=== PATIENT | female | born 2000 | race Caucasian/White ===

== ENCOUNTER → 2021-11-28 | Outpatient (CLI) | payer BC, OTHER ==
[~2021-11-28] MED LIST: ACET80
[2021-11-28 11:06] LABS: Source, Urine Voided
[2021-11-28 12:05] LABS: Appearance, Urine Clear (Clear); Bilirubin, Urine Neg (Neg); Blood, Urine Neg (Neg); Color, Urine Yellow (P-Yellow); Glucose Qualitative, Urine Neg (Neg); Ketones, Urine Neg (Neg); Leukocyte Esterase, Urine 1+ (Neg); Nitrite, Urine Neg (Neg); Protein, Urine Neg (Neg); Urobilinogen, Urine NORM (Normal); pH, Urine 6.5 (5.0-8.0)
[2021-11-28 12:16] LABS: Red Blood Cells, Urine 0-2 /hpf (0-2); Squamous Epithelial Cells Few /hpf (Few); Yeast/Fungi Urine Few /hpf
[2021-11-28 12:17] LABS: Bacteria Many /hpf; Mucus Mod (0-Heavy)
[2021-11-28 12:19] LABS: Hyaline Casts 0-2 /lpf (0-2)
== END ==
LOC: LAB 11:05 → LAB SHORT 11:05 → LAB FUT 10-14 16:45
PROVIDERS: Family Medicine
DX: D50.8 Other iron deficiency anemias (principal); M06.09 Rheumatoid arthritis without rheumatoid factor, multiple sites; N39.0 Urinary tract infection, site not specified
CPT/HCPCS: 81001; 87086

== ENCOUNTER 2022-01-29 19:32 | Inpatient (IN) | payer BC, OTHER ==
[~2022-01-29] VITALS: Ht 152.4 cm; Wt 37.9 kg
--- NOTE | 2022-01-30 00:39 | NUR ---
ADMISSION PATIENT ADMITTED FROM ER AT 0000. PATIENT SETTLED INTO R0OM. PATIENT ORIENTED TO CALL LIGHT. PATIENT ALLOWED US TO CHANGE HER CLOTHES AND CLEAN HER UP. ADMISSION COMPLETE. PATIENT ON 2 MD HOLD. PATIENT ON LOW SI. PATIENT REFUSED IV OR LAB DRAW, WILL CONTINUE TO ATTEMPT. PATIENT A&O X1-2. PATIENT HAS VERY SCATTERED THOUGHTS, DOES NOT ANSWER MOST QUESTIONS APPROPRIATELY. WILL OCCASSIONALLY LAUGH, PATIENT ADMITS TO HEARING VOICES AND HAVING VISUAL HALLUCINATIONS. PATIENT ADMITS THAT SOMETIMES THE VOICES MAKE SUGGESTIONS ABOUT HARMING HERSELF. PATIENT DID SIP ON SOME SPRITE, PER REPORT, PATIENT HAS SIGNIFICANT WEIGHT LOSS.
--- NOTE | 2022-01-30 05:49 | NUR ---
SHIFT SUMMARY PATIENT DENIES PAIN, NAUSEA, AND SHORTNESS OF BREATH. PATIENT ON BEDREST. PATIENT HAS ALLOWED STAFF TO CHECK AND CHANGE HER SINCE BEING ADMITTED. PATIENT VERY FIRM ON NOT HAVING LAB DRAWS OR IV PLACED. PATIENT STATES IT WILL NOT HELP HER AND SHE DOES NOT THINK FLUIDS IS NEEDED. PATIENT ALLOWED VITALS, SBP LOW. EDUCATED PATIENT ABOUT NEED FOR IV TO GIVE FLUIDS FOR LOW SBP. PATIENT INSISITENT THAT FLUIDS WILL NOT HELP AND THAT IT NOT HOW YOU FIX IT. PATIENT ALSO STATED SHE JUST WANTS TO , BUT DID NOT STATE A PLAN. PATIENT READ CIVIL RIGHTS. DR. CHU NOTIFIED OF PATIENT REFUSAL, NO NEW ORDERS. DURING 0400 VITALS, PATIENT DENIES HALLUCINATIONS, VISUAL AND AUDITORY. PATIENT ALSO COULD ANSWER ORIENTED QUESTIONS APPROPRIATELY. HOWEVER, THOUGHT PATTERN STILL SEEMS SCATTERED DURING CONVERSATION. PATIENT DID AGREE TO DRINK WATER. PATIENT DID EAT SOME ICE CREAM. PATIENT IS PLEASANT.
--- NOTE | 2022-01-30 08:03 | NUR ---
Patient refused vital signs this morning.
--- NOTE | 2022-01-30 10:57 | NUR ---
PT OPENS HER EYES TO STIMULI, REFUSES TO SPEAK FOR SI MACIE. GAVE PT APPROX 5 MINS, ASSESSED PT ORIENTATION-PT ABLE TO TELL ME [facility] STATES SHE HAS BEEN HERE SEVERAL TIMES FOR BIRTHS AND TO SEE FAMILY MEMBERS WHO WERE PT'S. STATES SI- PT STATES SHE HAS THOUGHTS OF HER LIFE ENDING. WHEN ASKED ABOUT PLAN, PT STATES SHE PLANS TO IN HER SLEEP. PT STATES SHE GETS NAUSEA WHEN SHE EATS, DRINKS, OR TAKES MEDS.
--- NOTE | 2022-01-30 17:17 | NUR ---
SHIFT SUMMARY PT A&OX4 AND IN PLEASENT MOOD T/O SHIFT. PT APPEARS TO BE WITHDRAWN ESPECIALLY IN AM HOURS-PT WOULD OPEN EYES TO QUESTIONS, WITH NO RESPONSE. PT UP TO RECLINER IN AFTERNOON, ACCEPTED SNACKS AND ROOT BEER. VERBALLY RESPONDING TO STAFF. CONT. VOID IN TOILET, BRUSHED TEETH. AMBULATED IN DALAL TO WINDOW. WATCHING TV NOW. CALL LIGHT W/IN REACH.
--- NOTE | 2022-01-31 05:56 | NUR ---
NIGHTSHIFT SUMMARY Patient AOx3, awake watching TV all evening. Patient declined Risperadone @ HS. Provided education, unreceptive. Remote monitoring called, patient got up out of chair w/o assistance. Staff assisted pateint to bed, patient quiet, appears withdrawn. Patient slowly got into bed, call-light in reach, bed alarm activated & audible for safety. Patient continent of bowel/bladder. Declined morning labs. Allowed AM vital signs. Will continue to monitor.
--- NOTE | 2022-01-31 14:10 | NUR ---
PT STATES SHE DOES NOT WANT TO TALK ABOUT , SHE DOES NOT WANT TO HARM HERSELF
--- NOTE | 2022-01-31 18:17 | NUR ---
SHIFT SUMMARY PT A&OX4 AND IN A PLEASENT MOOD T/O SHIFT, THOUGH WITHDRAWN. TOLERATING AND REQUESTING FOOD. PARENTS IN TO SEE PT BRIEFLY DURING VISITING HOURS. UP TO BATHROOM FOR VOID, WEAK GAIT 1X. CALL LIGHT W/IN REACH. REFUSING MEDS, STATES "I DONT WANT TO TAKE IT, MEDS MAKE ME SICK". PENDING INPATIENT PSYCH.
--- NOTE | 2022-01-31 20:00 | NUR ---
PT DENIES SUICICAL IDEATION. PT RESTING QUIETING IN BED. REQUESTED VANILLA ICE CREAM. PT REPORTS PAIN WITH MOVEMENT, OTHERWISE SHE DENIES PAIN.
--- NOTE | 2022-02-01 04:20 | NUR ---
PT AWAKE, SITTING UP IN BED - REQUESTING ICE CREAM AND YOGURT - BOTH PROVIDED PER REQUEST. PT HAS BEEN COOPERATIVE WITH [facility].
--- NOTE | 2022-02-01 05:33 | NUR ---
SHIFT SUMMARY - NO ACUTE CHANGES THROUGHOUT THIS SHIFT. PT HAS HAD A GOOD APPETITE TONIGHT, WITH SEVERAL REQUESTS FOR FOOD/SNACKS. PT REFUSED LAB DRAWS AND MEDICATIONS TONIGHT. PT WAS INCONTINENT OF URINE/BM - ATTENDS IN PLACE. PT HAD ONE EPISODE OF LAUGHING, APPARENTLY NOT TO ANYTHING GOING ON IN THE ROOM. PT HAS OTHERWISE BEEN APPROPRIATE IN HER BEHAVIOR, EXCEPT SHE IS WITHDRAWN. PT SLEPT FOR APPX 4-5 HOURS TONIGHT. FLUIDS AT BEDSIDE. CALL LIGHT WITHIN REACH. BED IN LOW POSITION. WILL CONTINUE TO MONITOR UNTIL AM SHIFT CHANGE. PT DID REPORT HAVING AUDITORY HALLUCINATIONS AT THE BEGINNING OF THE SHIFT.
--- NOTE | 2022-02-01 14:21 | NUR ---
PT STATES SHE HAS THOUGHTS OF , SHE STATES, "I CAN HEAR THE BEEPING FROM THE DALAL AND IT REMINDS ME OF A HEART MONITOR, THEN SOUNDS LIKE A FLAT LINE, BUT I DONT WANT TO HURT MYSELF."
--- NOTE | 2022-02-01 14:22 | NUR ---
PT WILLING TO SHOWER, ICE CREAM AND ROOTBEER UTILIZED MOTIVATION.
--- NOTE | 2022-02-01 17:00 | NUR ---
SHIFT SUMMARY A&O X4 AND IN PLEASENT MOOD, THOUGH WITHDRAWN @ TIMES. SHOWERED THIS SHIFT. TOLERATING PO INTAKE @ THIS TIME, REQUESTS SNACKS T/O SHIFT. DENIES SI. SBA. INCONT. URINATION THIS SHIFT PER SCREW MACHINE REPAIRER PT URINATED ON FLOOR. CALL LIGHT W/IN REACH. PT REFUSES MEDS, STATES "MEDS MAKE ME SICK". VSS. PLAN FOR IN-PT PSYCH PLACEMENT.
--- NOTE | 2022-02-01 22:11 | NUR ---
SUICIDE RISK ASSESSMENT: PATIENT DENIES SUICIDE IDEATIONS AT THIS TIME.
--- NOTE | 2022-02-02 06:44 | NUR ---
SHIFT SUMMARY: PATIENT IS A&OX3, DENIES SUICIDE IDEATIONS, VSS. PATIENT REFUSED 0400 VS, COVID SWAB AND MEDICATIONS. SNACK WAS GIVEN AND PATIENT ATE 100%
--- NOTE | 2022-02-02 17:37 | NUR ---
SHIFT SUMMARY NO ACUTE CHANGES DURING SHIFT. PT ALERT TO SELF. PERIODICAL HALLUCINATIONS. PT STILL REFUSING MEDICATIONS AND TREATMENT. PT PENDING IN PATIENT PSYCH PLACEMENT. PT WITH CONTINUED BOUTS OF INCONTINENCE. WILL CONTINUE TO MONITOR. CALL LIGHT WITHIN REACH.
--- NOTE | 2022-02-02 23:45 | NUR ---
ATTEMPTED TO HELP CHANGE PT'S WET ATTENDS AND GOWN, PT REFUSED. OFFERED TO HELP PT CHANGE WET ATTENDS, PT REFUSED WELL. OFFEREED TO GATHER NEEDED SUPPLIES FOR PT TO CHANGE ATTENDS AND GOWN BY HERSLF, PT REFUSES STATING SHE DOES NOT NEED TO GET OUT OF HER WET ATTENDS. EDUCATED PT ON NEED TO CHANGE WET ATTENDS LEAVING THEM IN PLACE AGAINST HER SKIN COULD CAUSE BREAKDOWN OR RASH, AND POSSIBLE EVEN A UTI. PT RESPONDED BY SAYING BABIES ARE LEFT IN THEIR WET DIAPERS FOR A LONG TIME AND THEY DON'T GET RASHES. PT ALSO STATES THAT SHE DOESNT CHANGE HER ATTENDS FOR DAYS AT HOME AND SHE RARELY GETS RASHES. PT ALSO EXPRESSED THAT SHE IS ANNOYED BY HOW OFTEN WE TRY TO GET HER TO CHANGE HER ATTENDS. REINFORCED EDUCTAION THAT WE REALLY WOULD LIKE HER TO CHANGE OUT OF HER WET ATTENDS SO THAT SHE DOESNT GET ANY OF THE NEGATIVE CONSEQUENCES OF SITTING IN HER URINE. PT STILL CONTINUES TO REFUSES ATTEND CHANGES. WILL CONTINUE TO ENCOURAGE ATTEND CHANGES/PERSONAL HYGIENE.
--- NOTE | 2022-02-03 05:44 | NUR ---
SHIFT SUMMARY; PT IS AXO X3, WITH AUDITORY HALLUCINATIONS. PT REFUSED MEDS THIS EVENING WELL ALL PERSONAL CARE. PT IS SLOW TO RESPOND AND IS WITHDRAWN FROM THE SITUATION. PT WET ATTENDS AND HER GOWN BUT REFUSED TO BE CHANGED. ATTEMPTED TO CHANGE PT AND OFFERED ASSISTANCE BUT PT REFUSED. PT WAS ALSO OFFERED SUPPLIES TO CHANGE HERSELF BUT REFUSED TO DO SO. PT WAS EDUCATED ON POTENTIAL COMPLICATION OF SITTING IN HER URINE. PT DID ASK FOR HOT TEA, ASYA CRACKERS AND ICE CREAM AND ATE/DRANK IT ALL. TRIED TO COVID TEST, PT REFUSED.PT PLACED ATTEND BY HER HEAD IN THE BED IN CASE SHE DECIDES SHE WANTS TO CHANGE HER ATTEND. PT IS CURRENTLY SLEEPING IN BED WITH THE BED IN THE LOWEST POSITION AND THE CALL LIGHT WITHIN REACH.
--- NOTE | 2022-02-03 17:13 | NUR ---
SHIFT SUMMARY NO ACUTE CHANGES DURING SHIFT. PT ALERT AND ORIENTED, PT HAS HAD PERIODICAL HALLUCINATIONS. PT IS SBA IN ROOM, INCREASED APPETITE, TOLERATING DIET. PT STILL REFUSING MEDICATIONS AND MOST TREATMENT, BUT ALLOWING VITALS AT TIMES. PT DENIED FOR INPATIENT PSYCH UNIT, PARENTS AT BEDSIDE TODAY AND INFORMED. CM DISCUSSED THOROUGHLY WITH FAMILY NEXT STEPS. CALL LIGHT WITHIN REACH
--- NOTE | 2022-02-04 04:04 | NUR ---
SHIFT SUMMARY PATIENT HAD NO ACUTE CHANGES. AXO X 4 AND SBA TO BR. INCONTINENT AT TIMES. ON CAMERA. CAMERA TECH REPORTED PATIENT VOIDED ON FLOOR. REFUSING ATTEND CHANGES AT TIMES. REFUSING MEDICATION AND ASSESSMENT. DID ALLOW VITALS THIS SHIFT. DENIES PAIN, SOB, AND N/V. VSS/AFEBRILE. CALL LIGHT IN REACH. BED IN LOWEST POSITION. WILL CONTINUE TO MONITOR UNTIL DAY SHIFT NURSE ASSUMES CARE.
--- NOTE | 2022-02-04 15:50 | NUR ---
Spiritual care consult received and processed. Pt is lying in bed and alert. Pt engages well in conversation but is slow to answer and is confused at times. She articulates her pain that she believes is a result of being forced to continue to exist when her main objective is to . Life has not been what she "wants it to be" and so she "does not want to participate in it any longer." She is admittedly frustrated that she is still on this planet. The rest of the conversation after these clear statements becomes a bit more scattered. She does not answer anything with any clarity and dances around the point. She also begins saying things like "You remind her of three people and they are all different." She cuts off communication once I ask about anything of hope, goodness or meaning." I ask about jewish which she is very allusive about answering as well but admits to believing in God and to have read the Bible. She will not allow any more probing on this topic either. I encourage self-care, normalize her feelings and provide therapeutic listening, and a calming presence. Pt states that she would prefer to not have a follow-up visit but thought that the current visit was "ok and she felt safe."
--- NOTE | 2022-02-04 17:43 | NUR ---
SHIFT SUMMARY PT IS ALERT AND ORIENTED X 3-4. PT WAS COOPERATIVE WITH MORNING ASSESSMENT. PT INITIALLY REFUSED MORNING MEDICATIONS BUT AGREED TO TAKE RISPERIDONE WITH ICE CREAM. PT HAD AN EPISODE OF INCONTIENCE IN THE AM BUT WHEN PROMPTED TO USE THE BATHROOM, SHE WILL GO. PT HAS BEEN SITTING IN RECLINER FOR AFTERNOON COLORING. PT ENJOYS LIFETIME AND [employer] NETWORK ON THE TV. PT IS QUITE AND ANSWERS QUESTIONS WITH MINIMAL RESPONSES. BED IN LOWEST POSITION AND CALL LIGHT IN REACH.
--- NOTE | 2022-02-05 04:26 | NUR ---
SHIFT SUMMARY PT SLEPT OFF AND ON THIS EVENING. PT WITH FLAT AFFECT. SOFT SPOKEN. RESPONSES TO QUESTIONS ARE SHORT. PT DOES DENY ANY HALLUCINATIONS OR SI THIS EVENING. LACKS MOTIVATION. INCONTINENT AT TIMES. DID ATTEMPT TO GET UP TO C THIS SHIFT AND ENDED UP VOIDING ALL OVER THE FLOOR. MOVEMENTS ARE STIFF AND SLOW. REFUSED 2100 MEDICATION. PT DID EAT A HALF A SANDWICH AND AN ICE CREAM CUP AND DRANK FLUIDS WELL. VITAL SIGNS REMAINED STABLE.
--- NOTE | 2022-02-05 18:01 | NUR ---
SHIFT SUMMARY NO ACUTE CHANGES TODAY. PT WAS UP TO BEDSIDE CHAIR FOR MOST OF THE DAY. PT REMAINS QUIET AND WITHDRAWN BUT ENJOYS COLORING. NO C/O OF PAIN. PT DID WALK TO BATHROOM INDEPENDENTLY AND GOT IN SHOWER WITH GOWN STILL ON, PER MEDICAL TRANSCRIPTION. VSS. BED IN LOWEST POSITION AND CALL LIGHT IN REACH.
--- NOTE | 2022-02-06 06:05 | NUR ---
NO CHANGES OVERNIGHT WITH GIDEON. SHE IS EXTREMELY WITHDRAWN, FLAT AND VERY SLOW TO RESPOND IN VERY SOFT ONE WORD ANSWERS. SHE DID TAKE HER HS RISPERDAL ORALLY CRUSHED IN ORANGE SHERBET. WITHIN 30 MINUTES, SHE WAS FAST ASLEEP AND DID NOT WAKE UNTIL AROUND 0600. AT 2400, PATIENT STIRRED ENOUGH ONLY TO TELL THIS RN NO WITH REGARD TO HER Q8 HOUR [place].
--- NOTE | 2022-02-06 17:28 | NUR ---
SHIFT SUMMARY PATIENT IS ALERT AND ORIENTED 2-3X. PATIENT HAS HAD NO ACUTE EVENTS THIS SHIFT. VITAL SIGNS REVIEWED. PATIENT HAS HAD SOFT B/P, AWARE. PATIENT REFUSED HER MEDICATIONS OF JORDAN [place] THIS SHIFT. PATIENT HAS TOOK A SHOWER WITH CLOTHES ON AND REFUSED TO GET OUT. PATIENT HAS NOT EATTEN MUCH ALL DAY. PATIENT HAS NOT COMPLAINED OF PAIN, NAUSEA, VOMITTING OR SOB THIS SHIFT. WILL MONITOR UNTIL SHIFT CHANGE.
--- NOTE | 2022-02-07 03:41 | NUR ---
PATIENT COMPLETELY REFUSING HS CARES ASSISTANCE, HS MEDS AND 2400 BENGAY. NEW CLOTHES WERE BROUGHT TO HER TO CHANGE INTO SHE WAS STILL WET FROM SHOWER, AND SHE REFUSED THAT TOO UNTIL SHE HAD AN EPISODE OF URINE INCONTINENCE AND THEN ONLY CHANGED INTO THE PANTS. UNWILLING TO COMMUNICATE USING FULL SENTENCES. STILL JUST SLOW TO RESPOND USING ONE TO TWO WORD RESPONSES.
--- NOTE | 2022-02-07 15:54 | NUR ---
SHIFT SUMMARY PT RESTING QUIETLY AT START OF SHIFT. SOFT SPOKEN, REFUSING ALL CARE. DR LOPEZ HERE TO SEE PT WHEN PRACTICE MANAGER RETURNED AGAIN TO ATTEMPT TO DRAW AM LABS. PT CONTINUED TO REFUSED ANY MEDS OR TREATMENTS. UP INDEPENDENTLY IN RM AND TO CHAIR, WELL BTHRM. NO C/O PAIN, DENIES NEEDS. CALL LT IN REACH.
--- NOTE | 2022-02-08 04:17 | NUR ---
GIDEON CONTINUES TO BE VERY QUIET AND SLOW TO RESPOND. OVERNIGHT, SHE WOULD PEER SLOWLY OVER THE TOP OF HER COVERS AND WHISPER OCCASIONAL ONE OR TWO WORD RESPONSES TO REQUESTS. SHE DID ALLOW THIS RN TO APPLY SOME BENGAY TO HER LEFT ELBOW AROUND 2200. VASILIYDAL WAS TAKEN CRUSHED AND PUT IN SEMI- MELTED ORANGE SHERBET AND MADE INTO A "SHAKE" AT . NO ATTEMPTS TO WALK OFF UNIT, OR EVEN WALK IN THE DALAL OVERNIGHT NO COMPLAINTS OF PAIN OR DISCOMFORT OTHER THAN LEFT ELBOW AREA. [place] RIED TO ENCOURAGE PATIENT TO TALK, BUT NO SUCCESS SABINA
--- NOTE | 2022-02-08 15:05 | NUR ---
SHIFT SUMMARY PT REMAINS UNCHANGED. REFUSES CARE AND LABS. UP INDEPENDENTLY IN RM AND OOB TO CHAIR, SITTING IN THE SUN DURING THE DAY. EATING AND DRINKING WHAT SHE WILL. ALLOWED JORDAN [place]IS TO L ELBOW AREA, BUT THAT IS ALL. PT ENCOURAGED TO GO FOR A WALK IN HALLS AGAIN TODAY. PT WAS ACTUALLY EAGER TO DO THAT AND SET IN RECLINER AT END OF DALAL. VERY SOFT SPOKEN AND WILL NOT TALK MUCH AT ALL. NO C/O. DENIES NEEDS. USED BSC TO VOID A COUPLE OF TIMES. WILL CONTINUE TO MONTITOR. CALL LT IN REACH.
--- NOTE | 2022-02-09 04:01 | NUR ---
NO CHANGES NOTED WITH GIDEON OVERNIGHT. PATIENT DENIED PAIN, BUT DOES ALLOW APPLICATION OF BENGAY TO LEFT ELBOW. RISPERDAL WAS CRUSHED IN MIXED INTO HER CHOCOLATE PUDDING AROUND HS. STILL RESPONDS SPARINGLY WITH QUIET VOICE, AND ONE OR TWO WORD ANSWERS. VERY WITHDRAWN
--- NOTE | 2022-02-09 18:04 | NUR ---
SHIFT SUMMARY- PT IS ALERT, PLEANT AND COOPERATIVE. SHE HAS A POOR APPETITE. SHE IS SLOW TO RESPOND, AND HAS A FLAT AFFECT. DISCHARGE ORDERS WERE PLACED THIS EVENING. CALLED PT PARENTS AND THEY REPORTED THAT IS WAS NOT POSSIBLE FOR THEM TO TAKE HER HOME AT THIS TIME. NOTIFIED DR. PICKENSITING TO HEAR BACK FROM HIM. HER BED IS IN THE LOW POSITION AND CALL LIGHT IS WITIN REACH.
--- NOTE | 2022-02-10 04:40 | NUR ---
SHIFT SUMMARY 21 YR F ADMITTED ON 13/10/21 FOR FAILURE TO THRIVE. FULL CODE. NO ACUTE CHANGES THIS SHIFT. PT IS VERY WITHDRAWN AND SHY BUT DID ANSWER QUESTIONS FOR THIS NURSE. SHE TOOK HER EVENING MEDS CRUSHED IN ICE CREAM. SHE PENT MOST OF THIS SHIFT IN HER ROOM WITH THE LIGHTS OFF BUT NOT SURE IF SHE WAS ACTUALLY SLEEPING OR NOT.
--- NOTE | 2022-02-10 12:34 | NUR ---
EXPLAINED D/C TO PT. PT LABILE AND WITHDRAWN, TO RESPONSE NOTED DURING CONVERSATION. WILL CONTINUE TO MONTIOR AND OFFER EDUCATION IF PT IS RESPONSIVE.
--- NOTE | 2022-02-10 13:02 | NUR ---
EDUCATED PT ON PAPERWORK, PT LISTENED BUT WITH NO RESPONSE. PT DOES NOT WANT TO RETURN HOME. PT RELUCTANT TO GET IN WHEEL CHAIR FOR TRANSPORT. WITH ASSISTANCE OF 2 RN'S TO GET PT IN CHAIR FOR TRANSPORT. PT CLOSED EYES AND QUIETLY WENT WITH TRANSPORT. ALL BELONGINGS IN HAND, PAPERWORK WITH VOIP NETWORK ENGINEER. PT REFUSED TO TALK OTHER THAN WHEN SHE DID NOT WANT TO GO HOME, STATING "NO ONE CARES ABOUT ME." AFTER SITTING BEDSIDE WITH PT i DID NOT GET INFORMATION WHY PT DID NOT WANT TO RETURN HOME. PT IN BED THROUGHOUT SHIFT. VSS. APPETITE OK. INDEPENDANT IN ROOM. CALL LIGHT IN REACH DURING SHIFT. PT D/C'D TO HOME VIA TRANSPORT @1300.
== END 2022-02-10 12:58 | disposition home or self-care (01) | DRG 885 ==
LOC: ER 19:32 → MEDS 23:45
PROVIDERS: ADMIT Hospitalist
DX: F23 Brief psychotic disorder (principal); R64 Cachexia; R44.0 Auditory hallucinations; E44.1 Mild protein-calorie malnutrition; Z68.1 Body mass index [BMI] 19.9 or less, adult; G31.84 Mild cognitive impairment of uncertain or unknown etiology; R62.7 Adult failure to thrive; M08.00 Unspecified juvenile rheumatoid arthritis of unspecified site; M08.8 Other juvenile arthritis; R32 Unspecified urinary incontinence; I95.9 Hypotension, unspecified
CPT/HCPCS: 97162; 99285; A9270; Q3014

== ENCOUNTER 2022-02-14 13:25 | Observation (INO) | payer BC, OTHER ==
[~2022-02-14] VITALS: Ht 149.9 cm; Wt 34.0 kg
[2022-02-14 14:57] LABS: Influenza A, PCR NEGATIVE (NEGATIVE); Influenza B, PCR NEGATIVE (NEGATIVE); Resp Syncytial Virus, PCR NEGATIVE (NEGATIVE)
[2022-02-14 15:03] LABS: SARS-Cov-2 (COVID-19) PCR, MMC POSITIVE (NEGATIVE)
[2022-02-14 22:43] LABS: Source, Urine Clean Catch
[2022-02-14 22:47] LABS: Bilirubin, Urine Neg (Neg); Blood, Urine 2+ (Neg); Glucose Qualitative, Urine Neg (Neg); Ketones, Urine 1+ (Neg); Leukocyte Esterase, Urine 1+ (Neg); Nitrite, Urine Neg (Neg); Protein, Urine 1+ (Neg); Specific Gravity, Urine 1.015 (1.003-1.022); Urobilinogen, Urine 1+ (Normal)
[2022-02-14 22:53] LABS: Appearance, Urine Cloudy (Clear); Color, Urine Yellow (P-Yellow)
[2022-02-14 22:54] LABS: Amorphous Heavy (0-Heavy); Bacteria Mod /hpf; Red Blood Cells, Urine 0-2 /hpf (0-2); Squamous Epithelial Cells Mod /hpf (Few); White Blood Cells, Urine 0-2 /hpf (0-5)
[2022-02-14 22:57] LABS: U Amphetamine Screen Not Detected; U Barbituate Screen Not Detected; U Benzodiazapine Screen Not Detected; U Buprenorphine Screen Not Detected; U Cannabinoids Screen Not Detected; U Cocaine Screen Not Detected; U Methadone Screen Not Detected; U Methamphetamine Screen Not Detected; U Opiates Screen Not Detected; U Oxycodone Screen Not Detected; U Phencyclidine Screen Not Detected; U Propoxyphene Screen Not Detected
[2022-02-15 09:37] LABS: BASOPHILS ABSOLUTE AUTO 0.03 K/mm3 (0.00-0.23); BASOPHILS PERCENT AUTO 0 % (0-2); EOSINOPHILS ABSOLUTE AUTO 0.07 K/mm3 (0.00-0.68); EOSINOPHILS PERCENT AUTO 1 % (0-6); Hematocrit 33.2 % (33.0-51.0); Hemoglobin 9.1 g/dL (11.5-16.0); IMMATURE GRAN ABSOLUTE AUTO 0.02 K/mm3 (0.00-0.10); IMMATURE GRAN PERCENT AUTO 0 % (0-1); LYMPHOCYTES ABSOLUTE AUTO 1.58 K/mm3 (0.84-5.20); LYMPHOCYTES PERCENT AUTO 23 % (21-46); MONOCYTES ABSOLUTE AUTO 0.55 K/mm3 (0.16-1.47); MONOCYTES PERCENT AUTO 8 % (4-13); Mean Corpuscular HGB 18.7 pg (26.0-34.0); Mean Corpuscular HGB Conc 27.4 g/dL (31.5-36.5); Mean Corpuscular Volume 68 fL (80-100); NEUTROPHILS ABSOLUTE AUTO 4.63 K/mm3 (1.96-9.15); NEUTROPHILS PERCENT AUTO 67 % (41-73); Platelet Count 387 K/mm3 (150-400); RDW Coefficient Variation 20.1 % (11.7-14.2); RDW Standard Deviation 48.7 fL (35.1-46.3); Red Blood Cell Count 4.86 M/mm3 (3.80-5.20); White Blood Cell Count 6.88 K/mm3 (4.00-11.30)
[2022-02-15 10:02] LABS: Ethanol (Alcohol), Blood, Med <3 mg/dL; Salicylate <1.7 mg/dL (2.8-20.0)
[2022-02-15 10:21] LABS: Acetaminophen, Random <2.0 ug/mL (10.0-30.0); Alanine Aminotransfer (ALT/SGP 14 U/L (12-78); Albumin, Blood 3.5 g/dL (3.4-5.0); Albumin/Globulin Ratio 0.8 (0.8-1.8); Alk Phos 102 U/L (50-136); Anion Gap 6 mmol/L (6-16); Aspartate Aminotrans (AST/SGOT 13 U/L (12-37); Bilirubin, Total 0.4 mg/dL (0.1-1.0); Blood Urea Nitrogen 9 mg/dL (8-24); Bun/Creatinine Ratio 26.9 (12.0-20.0); CO2, Blood 26 mmol/L (21-32); Calcium, Blood 8.5 mg/dL (8.5-10.1); Chloride, Blood 107 mmol/L (98-108); Creatinine, Blood 0.33 mg/dL (0.40-1.00); Globulin, Blood 4.3 g/dL (2.2-4.0); Glomerular Filtration Rate 151 (60-); Glucose, Blood 144 mg/dL (70-99); Potassium, Blood 4.7 mmol/L (3.5-5.5); Sodium, Blood 139 mmol/L (136-145); Total Protein, Blood 7.8 g/dL (6.4-8.2)
[2022-02-21 20:01] LABS: Source, Urine Clean Catch
[2022-02-21 20:07] LABS: Appearance, Urine Hazy (Clear); Bilirubin, Urine Neg (Neg); Blood, Urine 3+ (Neg); Color, Urine Yellow (P-Yellow); Glucose Qualitative, Urine Neg (Neg); Ketones, Urine Neg (Neg); Leukocyte Esterase, Urine 1+ (Neg); Nitrite, Urine Neg (Neg); Protein, Urine 1+ (Neg); Specific Gravity, Urine 1.025 (1.003-1.022); Urobilinogen, Urine 2+ (Normal)
[2022-02-21 20:28] LABS: Bacteria Many /hpf; Red Blood Cells, Urine 0-2 /hpf (0-2); Squamous Epithelial Cells Mod /hpf (Few); White Blood Cells, Urine 0-2 /hpf (0-5)
[2022-02-21 20:29] LABS: Amorphous Light (0-Heavy); Calcium Oxalate Crystals Many /hpf; Mucus Light (0-Heavy)
== END 2022-03-05 13:03 | disposition home or self-care (01) ==
LOC: ER 13:25 → EOR 13:26
PROVIDERS: Physician Assistant; ADMIT Student in an Organized Health Care Education/Training Program
DX: F29 Unspecified psychosis not due to a substance or known physiological condition (principal); U07.1 COVID-19; R45.850 Homicidal ideations
CPT/HCPCS: 0241U; 36415; 80053; 81001; 81025; 85025; 86592; 87077; 87086; 87186; 93005; 93010; 96372; 99285-25; A9270; G0378; G0480; J2794

== ENCOUNTER 2022-07-11 19:38 | Observation (INO) | payer OTHER ==
[~2022-07-11] VITALS: Ht 154.9 cm; Wt 45.4 kg
[~2022-07-11 19:38] MED LIST changes: +RISPERDAL INJ
[2022-07-11] MEDS ORDERED: Vitamin C100 M1 (19:58)
[2022-07-11 20:55] LABS: Influenza A, PCR NEGATIVE (NEGATIVE); Influenza B, PCR NEGATIVE (NEGATIVE); Resp Syncytial Virus, PCR NEGATIVE (NEGATIVE); SARS-Cov-2 (COVID-19) PCR, MMC NEGATIVE (NEGATIVE)
[2022-07-11 21:10] LABS: BASOPHILS ABSOLUTE AUTO 0.05 K/mm3 (0.00-0.23); BASOPHILS PERCENT AUTO 0 % (0-2); EOSINOPHILS ABSOLUTE AUTO 0.02 K/mm3 (0.00-0.68); EOSINOPHILS PERCENT AUTO 0 % (0-6); Hematocrit 37.3 % (33.0-51.0); Hemoglobin 10.6 g/dL (11.5-16.0); IMMATURE GRAN ABSOLUTE AUTO 0.04 K/mm3 (0.00-0.10); IMMATURE GRAN PERCENT AUTO 0 % (0-1); LYMPHOCYTES ABSOLUTE AUTO 0.94 K/mm3 (0.84-5.20); LYMPHOCYTES PERCENT AUTO 7 % (21-46); MONOCYTES ABSOLUTE AUTO 0.62 K/mm3 (0.16-1.47); MONOCYTES PERCENT AUTO 5 % (4-13); Mean Corpuscular HGB 20.1 pg (26.0-34.0); Mean Corpuscular HGB Conc 28.4 g/dL (31.5-36.5); Mean Corpuscular Volume 71 fL (80-100); Mean Platelet Volume 9.7 fL (9.1-12.4); NEUTROPHILS ABSOLUTE AUTO 11.45 K/mm3 (1.96-9.15); NEUTROPHILS PERCENT AUTO 87 % (41-73); Platelet Count 470 K/mm3 (150-400); RDW Coefficient Variation 16.8 % (11.7-14.2); RDW Standard Deviation 42.2 fL (35.1-46.3); Red Blood Cell Count 5.27 M/mm3 (3.80-5.20); White Blood Cell Count 13.12 K/mm3 (4.00-11.30)
[2022-07-11 21:35] LABS: Ethanol (Alcohol), Blood, Med <3 mg/dL; Salicylate <1.7 mg/dL (2.8-20.0); Thyroid Stimulating Hormone 0.587 uIU/mL (0.360-4.800); Thyroxine (T4) 12.8 ug/dL (4.8-13.9)
[2022-07-11 21:43] LABS: Alanine Aminotransfer (ALT/SGP 19 U/L (12-78); Albumin, Blood 3.8 g/dL (3.4-5.0); Albumin/Globulin Ratio 0.7 (0.8-1.8); Alk Phos 106 U/L (50-136); Anion Gap 9 mmol/L (6-16); Aspartate Aminotrans (AST/SGOT 23 U/L (12-37); Bilirubin, Total 0.3 mg/dL (0.1-1.0); Blood Urea Nitrogen 4 mg/dL (8-24); CO2, Blood 21 mmol/L (21-32); Calcium, Blood 9.4 mg/dL (8.5-10.1); Chloride, Blood 106 mmol/L (98-108); Creatinine, Blood 0.27 mg/dL (0.40-1.00); Globulin, Blood 5.1 g/dL (2.2-4.0); Glomerular Filtration Rate 158 (60-); Glucose, Blood 95 mg/dL (70-99); Potassium, Blood 3.4 mmol/L (3.5-5.5); Sodium, Blood 136 mmol/L (136-145); Total Protein, Blood 8.9 g/dL (6.4-8.2)
[2022-07-11 21:44] LABS: Acetaminophen, Random <2.0 ug/mL (10.0-30.0)
[2022-07-12 02:50] LABS: Source, Urine Voided
[2022-07-12 02:55] LABS: Appearance, Urine Hazy (Clear); Bilirubin, Urine Neg (Neg); Blood, Urine 5+ (Neg); Color, Urine Yellow (P-Yellow); Glucose Qualitative, Urine Neg (Neg); Ketones, Urine 3+ (Neg); Leukocyte Esterase, Urine 2+ (Neg); Nitrite, Urine Neg (Neg); Protein, Urine 1+ (Neg); Specific Gravity, Urine 1.015 (1.003-1.022); Urobilinogen, Urine NORM (Normal)
[2022-07-12 03:01] LABS: Amorphous Light (0-Heavy); Bacteria Mod /hpf; Red Blood Cells, Urine 50-100 /hpf (0-2); Squamous Epithelial Cells Mod /hpf (Few)
[2022-07-12 03:04] LABS: U Amphetamine Screen Not Detected; U Barbituate Screen Not Detected; U Benzodiazapine Screen Not Detected; U Buprenorphine Screen Not Detected; U Cannabinoids Screen Not Detected; U Cocaine Screen Not Detected; U Methadone Screen Not Detected; U Methamphetamine Screen Not Detected; U Opiates Screen Not Detected; U Oxycodone Screen Not Detected; U Phencyclidine Screen Not Detected; U Propoxyphene Screen Not Detected
== END 2022-07-12 22:30 ==
LOC: ER 19:38 → EOR 19:39
PROVIDERS: Emergency Medicine; ADMIT Student in an Organized Health Care Education/Training Program
DX: F33.9 Major depressive disorder, recurrent, unspecified (principal); Z20.822 Contact with and (suspected) exposure to COVID-19; Z79.899 Other long term (current) drug therapy
CPT/HCPCS: 0241U; 80053; 81001; 81025; 84436; 84443; 85025; 87077; 87086; 87186; 93005; 93010; G0480

== ENCOUNTER 2022-07-30 15:05 | Observation (INO) | payer OTHER ==
[~2022-07-30] VITALS: Ht 152.4 cm; Wt 43.3 kg
[~2022-07-30 15:05] MED LIST changes: +Vitamin C100 M1
[2022-07-30] MEDS ORDERED: OLAN10 PO (15:33)
[2022-07-30 16:24] LABS: Source, Urine Clean Catch
[2022-07-30 16:33] LABS: Appearance, Urine Clear (Clear); Bilirubin, Urine Neg (Neg); Blood, Urine Neg (Neg); Color, Urine Yellow (P-Yellow); Glucose Qualitative, Urine Neg (Neg); Ketones, Urine Neg (Neg); Leukocyte Esterase, Urine 3+ (Neg); Nitrite, Urine Neg (Neg); Protein, Urine Neg (Neg); Specific Gravity, Urine 1.005 (1.003-1.022); Urobilinogen, Urine NORM (Normal)
[2022-07-30 16:44] LABS: Bacteria Mod /hpf; Red Blood Cells, Urine 0-2 /hpf (0-2); Squamous Epithelial Cells Few /hpf (Few); White Blood Cells, Urine 25-50 /hpf (0-5)
[2022-07-30 16:49] LABS: U Amphetamine Screen Not Detected; U Barbituate Screen Not Detected; U Benzodiazapine Screen Not Detected; U Buprenorphine Screen Not Detected; U Cannabinoids Screen Not Detected; U Cocaine Screen Not Detected; U Methadone Screen Not Detected; U Methamphetamine Screen Not Detected; U Opiates Screen Not Detected; U Oxycodone Screen Not Detected; U Phencyclidine Screen Not Detected; U Propoxyphene Screen Not Detected
[2022-07-30 19:04] LABS: BASOPHILS ABSOLUTE AUTO 0.06 K/mm3 (0.00-0.23); BASOPHILS PERCENT AUTO 1 % (0-2); EOSINOPHILS ABSOLUTE AUTO 0.03 K/mm3 (0.00-0.68); EOSINOPHILS PERCENT AUTO 0 % (0-6); Hematocrit 35.3 % (33.0-51.0); Hemoglobin 10.1 g/dL (11.5-16.0); IMMATURE GRAN ABSOLUTE AUTO 0.04 K/mm3 (0.00-0.10); IMMATURE GRAN PERCENT AUTO 0 % (0-1); LYMPHOCYTES ABSOLUTE AUTO 1.82 K/mm3 (0.84-5.20); LYMPHOCYTES PERCENT AUTO 14 % (21-46); MONOCYTES ABSOLUTE AUTO 0.71 K/mm3 (0.16-1.47); MONOCYTES PERCENT AUTO 6 % (4-13); Mean Corpuscular HGB 19.7 pg (26.0-34.0); Mean Corpuscular HGB Conc 28.6 g/dL (31.5-36.5); Mean Corpuscular Volume 69 fL (80-100); Mean Platelet Volume 9.8 fL (9.1-12.4); NEUTROPHILS ABSOLUTE AUTO 10.04 K/mm3 (1.96-9.15); NEUTROPHILS PERCENT AUTO 79 % (41-73); Platelet Count 568 K/mm3 (150-400); RDW Coefficient Variation 16.6 % (11.7-14.2); RDW Standard Deviation 40.5 fL (35.1-46.3); Red Blood Cell Count 5.13 M/mm3 (3.80-5.20)
[2022-07-30 19:19] LABS: Ethanol (Alcohol), Blood, Med <3 mg/dL; Salicylate <1.7 mg/dL (2.8-20.0)
[2022-07-30 19:21] LABS: Acetaminophen, Random <2.0 ug/mL (10.0-30.0); Alanine Aminotransfer (ALT/SGP 21 U/L (12-78); Albumin, Blood 3.8 g/dL (3.4-5.0); Albumin/Globulin Ratio 0.8 (0.8-1.8); Alk Phos 101 U/L (50-136); Anion Gap 2 mmol/L (6-16); Aspartate Aminotrans (AST/SGOT 17 U/L (12-37); Bilirubin, Total 0.2 mg/dL (0.1-1.0); Blood Urea Nitrogen 7 mg/dL (8-24); Bun/Creatinine Ratio 21.8 (12.0-20.0); CO2, Blood 27 mmol/L (21-32); Calcium, Blood 9.2 mg/dL (8.5-10.1); Chloride, Blood 106 mmol/L (98-108); Creatinine, Blood 0.32 mg/dL (0.40-1.00); Glomerular Filtration Rate 151 (60-); Glucose, Blood 104 mg/dL (70-99); Potassium, Blood 3.7 mmol/L (3.5-5.5); Sodium, Blood 135 mmol/L (136-145); Total Protein, Blood 8.8 g/dL (6.4-8.2)
[2022-07-30 19:41] LABS: Influenza A, PCR NEGATIVE (NEGATIVE); Influenza B, PCR NEGATIVE (NEGATIVE); Resp Syncytial Virus, PCR NEGATIVE (NEGATIVE); SARS-Cov-2 (COVID-19) PCR, MMC NEGATIVE (NEGATIVE)
[2022-08-11 15:21] LABS: BASOPHILS ABSOLUTE AUTO 0.04 K/mm3 (0.00-0.23); BASOPHILS PERCENT AUTO 1 % (0-2); EOSINOPHILS ABSOLUTE AUTO 0.04 K/mm3 (0.00-0.68); EOSINOPHILS PERCENT AUTO 1 % (0-6); Hematocrit 39.2 % (33.0-51.0); Hemoglobin 11.4 g/dL (11.5-16.0); IMMATURE GRAN ABSOLUTE AUTO 0.02 K/mm3 (0.00-0.10); IMMATURE GRAN PERCENT AUTO 0 % (0-1); LYMPHOCYTES ABSOLUTE AUTO 1.58 K/mm3 (0.84-5.20); LYMPHOCYTES PERCENT AUTO 21 % (21-46); MONOCYTES ABSOLUTE AUTO 0.36 K/mm3 (0.16-1.47); MONOCYTES PERCENT AUTO 5 % (4-13); Mean Corpuscular HGB 20.1 pg (26.0-34.0); Mean Corpuscular HGB Conc 29.1 g/dL (31.5-36.5); Mean Corpuscular Volume 69 fL (80-100); Mean Platelet Volume 9.7 fL (9.1-12.4); NEUTROPHILS ABSOLUTE AUTO 5.36 K/mm3 (1.96-9.15); NEUTROPHILS PERCENT AUTO 72 % (41-73); Platelet Count 664 K/mm3 (150-400); RDW Coefficient Variation 16.7 % (11.7-14.2); RDW Standard Deviation 40.5 fL (35.1-46.3); Red Blood Cell Count 5.68 M/mm3 (3.80-5.20)
[2022-08-11 16:09] LABS: Albumin, Blood 4.6 g/dL (3.4-5.0); Bilirubin, Total 0.4 mg/dL (0.1-1.0); Bun/Creatinine Ratio 11.4 (12.0-20.0); Calcium, Blood 9.4 mg/dL (8.5-10.1); Creatinine, Blood 0.35 mg/dL (0.40-1.00); Globulin, Blood 4.8 g/dL (2.2-4.0); Potassium, Blood 3.9 mmol/L (3.5-5.5); Total Protein, Blood 9.4 g/dL (6.4-8.2)
[2022-08-11 19:40] LABS: Source, Urine Clean Catch
[2022-08-11 19:53] LABS: Appearance, Urine Clear (Clear); Bilirubin, Urine Neg (Neg); Blood, Urine Neg (Neg); Color, Urine Yellow (P-Yellow); Glucose Qualitative, Urine Neg (Neg); Ketones, Urine 3+ (Neg); Leukocyte Esterase, Urine Neg (Neg); Nitrite, Urine Neg (Neg); Protein, Urine Neg (Neg); Urobilinogen, Urine NORM (Normal); pH, Urine 6.5 (5.0-8.0)
[2022-08-17 12:00] VITALS: BP 116/75
== END 2022-08-17 13:50 | disposition home or self-care (01) ==
LOC: ER 15:05 → EOR 15:06
PROVIDERS: Student in an Organized Health Care Education/Training Program; ADMIT Emergency Medicine
DX: F20.9 Schizophrenia, unspecified (principal); F41.9 Anxiety disorder, unspecified; Z79.899 Other long term (current) drug therapy; Z20.822 Contact with and (suspected) exposure to COVID-19
CPT/HCPCS: 0241U; 36415; 80053; 81001; 81003; 81025; 85025; 87086; 93005; 93010; 99285-25; A9270; G0378; G0480; Q3014